=== PATIENT | female | born 1985 | race American Indian/Alaskan Native ===

== ENCOUNTER 2019-06-22 06:16 | Emergency (ER) | payer OTHER ==
[2019-06-22 06:20] VITALS: BP 121/86
--- NOTE | 2019-06-22 06:41 | Emergency Department Report ---
Blank Doc - Documentation Documentation: 34-year-old with a significant history of cough congestion coryza and mild chest ache. No hemoptysis no hematemesis Plan to obtain a chest x-ray along with steroids and albuterol treatments will reevaluate her breathing status and chest x-ray results at that time.
[2019-06-22] MEDS ORDERED: predniSONE 50 MG TAB PO STA (06:42)
[2019-06-22] MEDS ORDERED: IPRATROPIUM/ALBUTEROL SULFATE 3 ML AMPUL.NEB IH STA (06:42)
--- NOTE | 2019-06-22 07:13 | XRay Report ---
CHEST 2 VIEWS INDICATION: bella. COMPARISON: None. FINDINGS: Support devices: None. Heart: Within normal limits. Lungs/Pleura: No acute air space or interstitial disease. No significant pleural effusion. IMPRESSION: No acute findings. Signer Name: Rcihie Lugo MD Signed: 06/22/2019 7:09 AM Workstation Name: [id number]
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
[2019-06-22] MEDS ORDERED: IPRATROPIUM/ALBUTEROL SULFATE 3 ML AMPUL.NEB IH ONE (08:05)
== END 2019-06-22 09:19 | disposition home or self-care (01) ==
LOC: ED 06:16
DX: J40 Bronchitis, not specified as acute or chronic (principal); Z79.899 Other long term (current) drug therapy
CPT/HCPCS: 71046; 94640; 99284; J7512; 94644